=== PATIENT | male | born 1965 | race Caucasian/White ===

== ENCOUNTER 2019-11-17 12:54 | Day surgery (SDC) | payer SELFPAY ==
[2019-11-17] MEDS ORDERED: Lidocaine 2% 5 ML SDV INJECT ONE (13:30)
[2019-11-17] MEDS ORDERED: Ropivacaine 0.5% 5 MG/ML 30 ML SDV INJECT ONE (13:30)
[2019-11-17] MEDS ORDERED: Iopamidol 200-M 10 ML vial ITHECAL ONE (13:30)
[2019-11-17] MEDS ORDERED: Betamethasone Acetate/Betamethasone Sod Phosphate 30 MG/5 ML MDV EPIDUR ONE (13:30)
--- NOTE | 2019-11-17 15:23 | OR ---
SURGEON: Leena Paige D.O. DATE OF PROCEDURE: 11/17/2019 PRIMARY SURGEON: Leena Paige DO ASSISTANTS: OR staff present: 1. Sara Metz RT. 2. Swati Murillo RN. 3. Lisbeth Ocampo RN. WOUND CLASS: I. PREOPERATIVE DIAGNOSES: 1. Failed back surgery syndrome. 2. Chronic low back pain. 3. Right lower extremity L5-S1 radiculopathy. POSTOPERATIVE DIAGNOSES: 1. Failed back surgery syndrome. 2. Chronic low back pain. 3. Right lower extremity L5-S1 radiculopathy. PROCEDURES PERFORMED: 1. Right transforaminal epidural steroid injection at S1. 2. Fluoroscopic guidance for needle placement. 3. Local with oral Valium for sedation. SCREENING QUESTIONS: The patient answered "no" to all of the following questions: 1. Are you allergic to iodine, Betadine or latex? 2. Do you have a bleeding disorder? 3. Do you have any joint replacements, heart valve replacements, or a pacemaker? 4. Are you allergic to anti-inflammatories or blood thinners? 5. Do you have any current local or systemic infections? DESCRIPTION OF PROCEDURE: The patient had the procedure thoroughly explained including risks, benefits and alternatives. Consent was signed in my clinic indicating understanding and willingness to proceed. The patient presented to [facility] [place] where the patient was escorted to the dressing room to disrobe and change into a hospital gown. Preoperative vital signs were taken and stable. The patient reported that Valium was taken prior to the procedure. The patient was brought to the procedure room and placed in the prone position on the table. A pillow was placed under the abdomen in order to flatten the lumbar lordosis. The back was prepped with ChloraPrep and sterilely draped. All personnel in the operating room were dressed in appropriate attire including surgical scrubs, head and shoe covers. This was to ensure sterility while in the treatment room. During the time fluoroscopy was in use, all personnel in the operating room wore lead freitas with thyroid collars. Sterile technique was used during the procedure. The fluoroscope was placed for the right transforaminal epidural steroid injection. There was no sign of infection at the skin site for needle insertion. The skin was anesthetized with 2% lidocaine with a 27 gauge 1-1/2 inch needle. Then, a 22 gauge 3-1/2 inch spinal needle, advanced to the S1. Under direct fluoroscopic guidance needle position was verified in three views; AP, oblique and lateral, with 0.2 cubic centimeters increments of Isovue-200 dye. No intravascular flow pattern was observed under live fluoroscopy. Then 12 milligrams of Celestone was slowly injected after negative aspiration of heme, cerebrospinal fluid and no paresthesias were noted. The needle was cleared prior to removal from the skin. No adverse reactions were noted. The patient was brought to the recovery room awake and in good condition by my staff. The patient was monitored and discharge instructions were given after a brief stay in the recovery area. Both oral and written discharge and follow up instructions were given. The patient will follow up in the clinic in 3-4 weeks post procedure to evaluate the efficacy. The patient verbalized understanding including understanding of those signs and symptoms that would require emergency care and knows how to contact the office if there are any problems or questions in the meantime. PREOPERATIVE PAIN: 6/10. POSTOPERATIVE PAIN: 4/10. FOLLOWUP: In the Pain Clinic in 3 weeks. SEYMOUR / CONNER /[id number] FARA
== END 2019-11-17 14:05 | disposition home or self-care (01) ==
LOC: MW.SDS 12:54
PROVIDERS: ATTEND Anesthesiology
DX: G89.29 Other chronic pain (principal); M96.1 Postlaminectomy syndrome, not elsewhere classified; M51.16 Intervertebral disc disorders with radiculopathy, lumbar region; M47.26 Other spondylosis with radiculopathy, lumbar region; M48.061 Spinal stenosis, lumbar region without neurogenic claudication; I10 Essential (primary) hypertension; M79.2 Neuralgia and neuritis, unspecified; Z88.0 Allergy status to penicillin; Z87.891 Personal history of nicotine dependence
CPT/HCPCS: 64483; J0702

== ENCOUNTER 2021-02-18 09:01 | Day surgery (SDC) | payer MEDICAID, OTHER ==
--- NOTE | 2021-02-18 08:51 | PCM.PREANE ---
Preanesthetic Assessment - Anesthesia/Transfusion/Family Hx Anesthesia History: Prior Anesthesia Without Reaction Transfusion History: No Prior Transfusion(s) - Review of Systems General: No Symptoms Pulmonary: No Symptoms Cardiovascular: No Symptoms Gastrointestinal: No Symptoms Neurological: No Symptoms Other: Reports: None - Physical Assessment Height: 6 ft 3 in Weight: 188 lb Mental Status: Alert & Oriented x3 Dentition: Reports: Normal Dentition ROM/Head Extension: Full Lungs: Clear to Auscultation, Normal Respiratory Effort Cardiovascular: Regular Rate, Regular Rhythm - Allergies Allergies/Adverse Reactions: Allergies Allergy/AdvReac Type Severity Reaction Status Date / Time Penicillins Allergy Rash Verified 02/13/21 13:14 PreAnesthesia Questionnaire HEENT History: Reports: Other (See Below) Other HEENT History: wears glasses/contacts, has upper dental plate Cardiovascular History: Reports: None Respiratory History: Reports: None Gastrointestinal History: Reports: None Genitourinary History: Reports: None Musculoskeletal History: Reports: Arthritis, Back Pain, Chronic, Fracture Other Musculoskeletal History: hx of fx ankle Neurological History: Reports: Concussion Psychiatric History: Reports: None Endocrine/Metabolic History: Reports: None Hematologic History: Reports: None Immunologic History: Reports: None Oncologic (Cancer) History: Reports: None Dermatologic History: Reports: None - Infectious Disease History Infectious Disease History: Reports: Chicken Pox, Measles, Mumps - Past Surgical History Head Surgeries/Procedures: Reports: None Cardiovascular Surgical History: Reports: None Respiratory Surgical History: Reports: None GI Surgical History: Reports: None Male Surgical History: Reports: None Endocrine Surgical History: Reports: None Neurological Surgical History: Reports: Laminectomy, Lumbar Spine, Spinal Fusion Other Neurological Surgeries/Procedures: Fusion L4 to S1- has cages and plates Musculoskeletal Surgical History: Reports: None - SUBSTANCE USE Tobacco Use Status *Q: Current Every Day Tobacco User Tobacco Use Within Last Twelve Months: Cigarettes Recreational Drug Use History: No - HOME MEDS Home Medications: Home Meds QUEtiapine [SEROquel] 50 mg PO BEDTIME 02/20/19 [History] - CURRENT (IN HOUSE) MEDS Current Meds: Current Medications Lactated Ringer's (Ringers, Lactated) 1,000 mls @ 125 mls/hr IV ASDIRECTED DWAINE Discontinued Medications Lactated Ringer's (Ringers, Lactated) 1,000 mls @ 125 mls/hr IV ASDIRECTED DWAINE Ciprofloxacin/Dextrose 400 mg/ (Premix) 200 mls @ 200 mls/hr IV Q12H ONE Stop: 02/18/21 07:59 Ciprofloxacin/Dextrose 400 mg/ (Premix) 200 mls @ 200 mls/hr IV ONETIME ONE Stop: 02/14/21 07:59 Ciprofloxacin/Dextrose (Cipro In D5w 400 Mg/200 Ml) Confirm Administered Dose 200 mls @ as directed .ROUTE .STK-MED ONE Stop: 02/18/21 06:11
[~2021-02-18 09:01] MED LIST: Albuterol 0.083% 2.5 MG/3 ML Neb Soln NEB PRN; Bupivacaine 0.5% 10 ML SDV ONE; Bupivacaine 0.5% 30 ML SDV ONE; Ciprofloxacin in D5W 200 ML ONE; Ciprofloxacin in D5W 400 MG in Premix Bag 1 BAG IV ONE; Dexamethasone 4 MG/ML 5 ML MDV ONE; HYDROmorphone 1 MG/ML Syringe IVPUSH PRN; Lactated Ringers 1,000 ML IV SCH; Lidocaine 2% 5 ML SDV ONE; Metoclopramide 10 MG/2 ML SDV IVPUSH PRN; Midazolam 1 MG/ML 2 ML SDV ONE; Morphine 2 MG/ML SYRINGE IVPUSH PRN; Naloxone 0.4 MG/ML SDV IVPUSH PRN; Ondansetron 4 MG/2 ML SDV IVPUSH PRN; Propofol 200 MG/20 ML SDV ONE; Rocuronium Bromide 50 MG/5 ML Syringe ONE; fentaNYL 100 MCG/2 ML SDV IVPUSH PRN
[2021-02-18] MEDS ORDERED: ceFAZolin 1 GM Vial ONE (09:49)
[2021-02-18] MEDS ORDERED: Bupivacaine 0.5% 30 ML SDV ONE (09:49)
--- NOTE | 2021-02-18 11:34 | PCM.SN.2 ---
- Free Text/Narrative Note: Anesthesia Start: 1053 Anesthesia End: 1056 Procedure: Placement of Ultrasound guided RIGHT TAPS block for post op an algesia. After informed consent and a block time out, the patients right abdomen was prepped with Chlorohexidine and a 20g, 10mm sun echogenic needle advanced under US guidance. Following negative aspiration, 30cc of ).5% Buipiv with decadron was injected in 5 ml increments. Patient tolerated the procedure well. Skip Lake MD Time Documentation
[2021-02-18] MEDS ORDERED: Ketorolac 30 MG/ML SDV ONE (11:55)
[2021-02-18] MEDS ORDERED: Sugammadex Sodium 200 MG/2 ML VIAL ONE (11:55)
[2021-02-18] MEDS ORDERED: Glycopyrrolate 0.2 MG/ML SDV ONE (11:56)
[2021-02-18] MEDS ORDERED: Morphine 10 MG/ML Syringe IVPUSH PRN (12:45)
[2021-02-18] MEDS ORDERED: Ondansetron 4 MG/2 ML SDV IVPUSH PRN (12:45)
[2021-02-18] MEDS ORDERED: Acetaminophen/HYDROcodone 325-5 MG Tab PO PRN (12:45)
[2021-02-18] MEDS ORDERED: Lactated Ringers 1,000 ML IV SCH (12:45)
--- NOTE | 2021-02-18 12:47 | PCM.POSTAN ---
POST ANESTHESIA ASSESSMENT - MENTAL STATUS Mental Status: Alert, Oriented - VITAL SIGNS Vital Signs: Last Vital Signs Temp 96.6 F L 02/18/21 09:08 Pulse 84 02/18/21 09:08 Resp 16 02/18/21 09:08 BP 146/90 H 02/18/21 09:08 Pulse Ox 99 02/18/21 09:08 - RESPIRATORY Respiratory Status: Respiratory Rate WNL, Airway Patent, O2 Saturation Stable - CARDIOVASCULAR CV Status: Pulse Rate WNL, Blood Pressure Stable - GASTROINTESTINAL GI Status: No Symptoms - POST OP HYDRATION Hydration Status: Adequate & Stable
--- NOTE | 2021-02-18 12:51 | PCM.OPNOTE ---
- General Post-Op/Procedure Note Date of Surgery/Procedure: 02/18/21 Operative Procedure(s): Right inguinal hernia repair with medium Bard Perfix plug and patch Pre Op Diagnosis: Reducible right inguinal hernia Post-Op Diagnosis: Same Anesthesia Technique: General ET Tube (ASA II) Primary Surgeon: Wes Okeefe [employer] Technology Instructor: Donald Kenyon Fluid Replacement, Intraop: 1,000 EBL in mLs: 5 Condition: Good Free Text/Narrative:: DICTATION [id number] CPT CODE 88913
--- NOTE | 2021-02-18 14:21 | OR ---
SURGEON: Wes Okeefe M.D. DATE OF PROCEDURE: 02/18/2021 OPERATION PERFORMED: Repair of right inguinal hernia with medium Bard PerFix plug and patch. PRIMARY SURGEON: Wes Okeefe M.D. SAMPLE CARD MAKER: Silk Snapper: MAR Can student. ANESTHESIA: General endotracheal. ASA CLASSIFICATION: II. PREOPERATIVE DIAGNOSIS: Reducible right inguinal hernia. POSTOPERATIVE DIAGNOSIS: Reducible right inguinal hernia. ESTIMATED BLOOD LOSS: 5 mL. INTRAOPERATIVE FLUID REPLACEMENT: Approximately 1 L of crystalloid. DESCRIPTION OF PROCEDURE: Patient was taken in to the operating room and placed on the operating table in the supine position. Time-out was called for appropriate identification of patient and procedure. Thigh-high TEDs and sequential compression boots were placed. Following satisfactory attainment of general endotracheal anesthesia, the abdomen was prepped with DuraPrep solution and sterile drapes were applied. Prior to induction of anesthesia, a nerve block was provided by Dr. Lake who will dictate that portion of the procedure. Once the abdomen was prepped and draped, skin incision was marked out and the skin infiltrated with 10 mL of 0.5% Marcaine solution. Skin incision was made and deepened through the subcutaneous tissue, obtaining hemostasis with the use of electrocautery. Dissection was carried down to the external oblique fascia which was opened in the direction of its fibers. The spermatic cord was mobilized and the hernia sac identified and dissected away from the cord. The hernia sac was able to be reduced into the internal ring. A medium Bard PerFix plug and patch was brought to the operating table. This was soaked in 1% Ancef solution and the plug placed into the internal ring, then secured with 0 Ethibond sutures. The patch was then placed over the inguinal floor to support it and secured in place with multiple interrupted 0 Ethibond sutures beginning medially and inferiorly to Juancarlos ligament, transitioning to the inguinal ligament, and superiorly to the transversalis fascia. The wings were brought around the cord laterally and secured with a 0 Ethibond suture. Patient was then given a Valsalva maneuver to 30 cm of water. The repair was solid. The wound was then irrigated with 1% Ancef solution and all fluid was aspirated. The cord was returned to its anatomic location. The external oblique was then closed with running 3-0 Vicryl. Patsy fascia was reapproximated with 3-0 Vicryl, and the skin edges were reapproximated with subcuticular 4-0 Monocryl reinforced with half-inch Steri-Strips. Sterile Tegaderm pad was placed as a dressing. Sponge, needle, and instrument counts were all correct. Patient tolerated the procedure well. Following emergence from anesthesia and extubation, the patient was taken to recovery room in stable condition. MIGUEL / CONNER /[id number]
== END 2021-02-18 14:45 | disposition home or self-care (01) ==
LOC: MW.SDS 09:01
PROVIDERS: ATTEND Surgery
DX: K40.90 Unilateral inguinal hernia, without obstruction or gangrene, not specified as recurrent (principal); G89.4 Chronic pain syndrome; I10 Essential (primary) hypertension; K21.9 Gastro-esophageal reflux disease without esophagitis; Z88.0 Allergy status to penicillin; Z98.890 Other specified postprocedural states
CPT/HCPCS: 49505; J0131; J0690; J0744; J1100; J1885; J2250; J2704; J3490; J7120; 00830; 64486; C1781